=== PATIENT | male | born 1955 | race Caucasian/White ===

== ENCOUNTER 2021-06-19 11:18 | Inpatient (IN) ==
[~2021-06-19 11:18] MED LIST: Buffered Lidocaine 1% SYRIN 1 ml INTRADERM ONE; Dexamethasone IV 4 MG/ML VIAL 1 ml VIAL IV SLOW PU ONE; Famotidine IV 10 MG/ML 2 ml VIAL (20 mg) IV ONE; Lactated Ringers 1000 ml BAG 1,000 ML IV SCH
[2021-06-19] MEDS ORDERED: fentaNYL 100 mcg/2 ml 50 MCG/ML VIAL ONE (11:24)
[2021-06-19] MEDS ORDERED: Midazolam 2 mg/2 ml VIAL 1 mg/ml 2 ml VIAL (2 mg) ONE (11:24)
[2021-06-19] MEDS ORDERED: Lidocaine 2% PF 5 ML VIAL ONE (11:26)
[2021-06-19] MEDS ORDERED: ceFAZolin 2 GM PREMIX 2 GM/50 ML BAG ONE (11:45)
[2021-06-19] MEDS ORDERED: Dexamethasone IV 4 MG/ML VIAL 1 ml VIAL ONE (11:46)
[2021-06-19] MEDS ORDERED: Famotidine IV 10 MG/ML 2 ml VIAL (20 mg) ONE (11:47)
[2021-06-19] MEDS ORDERED: Naloxone 0.4 mg VIAL 0.4 mg/ml 1 ml VIAL IV PRN (12:52)
[2021-06-19] MEDS ORDERED: Morphine 4 MG/ML VIAL (1 ml) IV PRN (12:52)
[2021-06-19] MEDS ORDERED: fentaNYL 100 mcg/2 ml 50 MCG/ML VIAL IV PRN (12:52)
[2021-06-19] MEDS ORDERED: Prochlorperazine 5 mg/ml 2 ml VIAL (10 mg) IV PRN (12:52)
[2021-06-19] MEDS ORDERED: Rocuronium 50 mg VIAL 10 mg/ml 5 ml VIAL (50 mg) ONE (13:23)
[2021-06-19] MEDS ORDERED: fentaNYL 250 mcg/5 ml 50 MCG/ML 5 ml VIAL (250 MCG) ONE (14:07)
[2021-06-19] MEDS ORDERED: HYDROmorphone 0.5 MG/0.5 ML SYRINGE ONE ×2 (14:07)
[2021-06-19] MEDS ORDERED: Phenylephrine IV 10 MG/ML 1 ml VIAL ONE (14:18)
[2021-06-19] MEDS ORDERED: Ropivacaine 5 MG/ML 20 ML VIAL 0.5% (100 MG) ONE (14:24)
[2021-06-19] MEDS ORDERED: Ondansetron 4 mg VIAL 2 MG/ML 2 ml VIAL IV PRN (14:55)
[2021-06-19] MEDS ORDERED: diPHENhydraMINE IV 50 MG/ML 1 ml VIAL (BENADRYL) IV PRN (14:55)
[2021-06-19] MEDS ORDERED: diPHENhydraMINE 25 mg TAB PO PRN (14:55)
[2021-06-19] MEDS ORDERED: Ondansetron 4 mg VIAL 2 MG/ML 2 ml VIAL ONE (14:55)
[2021-06-19] MEDS ORDERED: Ondansetron ODT 4 mg TAB 4 MG TAB PO PRN (14:55)
[2021-06-19] MEDS ORDERED: Lactulose 30 ml UDC PO PRN (14:55)
[2021-06-19] MEDS ORDERED: Magnesium Hydroxide LIQ 30 ML UDC PO PRN (14:55)
[2021-06-19] MEDS ORDERED: Acetaminophen IV 1 GM/100ML 100 ML IV ONE (15:25)
[2021-06-19] MEDS ORDERED: EPHEDrine (Pressors) 50 MG/ML VIAL ONE (15:56)
[2021-06-19] MEDS ORDERED: hydrALAZINE 20 mg/ml 1 ML Vial IV IV SLOW PU PRN (16:55)
[2021-06-19] MEDS: Lactated Ringers 1000 ml BAG 1,000 ML IV SCH (18:53)
[2021-06-19] MEDS: Magnesium Hydroxide LIQ 30 ML UDC PO SCH (20:55)
[2021-06-19] MEDS: ceFAZolin 1 GM ADVAN 1 GM in NS 0.9% 50 ML 50 ML IVPB SCH (22:06)
[2021-06-20] MEDS: Lactated Ringers 1000 ml BAG 1,000 ML IV SCH (04:18)
[2021-06-20 05:03] LABS: Hematocrit 25 % (42-52); Hemoglobin 8.5 g/dL (14.0-18.0); Platelet Count 221 10^3/uL (150-450)
[2021-06-20 05:21] LABS: Calcium 8.4 mg/dL (8.6-10.3); Potassium 4.6 mmol/L (3.5-5.0); eGFR CKD-EPI 79.6 (>60)
[2021-06-20] MEDS: ceFAZolin 1 GM ADVAN 1 GM in NS 0.9% 50 ML 50 ML IVPB SCH (05:55)
[2021-06-20] MEDS ORDERED: Vitamin THERAPEUTIC TAB PO SCH (09:00)
[2021-06-20] MEDS: Magnesium Hydroxide LIQ 30 ML UDC PO SCH (09:54)
[2021-06-20 11:57] VITALS: BP 111/47
== END 2021-06-20 12:10 | disposition home or self-care (01) | DRG 470 ==
LOC: AA 11:18 → SSU 17:57
PROVIDERS: ADMIT Orthopaedic Surgery Adult Reconstructive Orthopaedic Surgery; ATTEND Orthopaedic Surgery Adult Reconstructive Orthopaedic Surgery

== ENCOUNTER 2024-03-20 06:27 | Observation (INO) ==
[~2024-03-20 06:27] MED LIST changes: -Buffered Lidocaine 1% SYRIN 1 ml INTRADERM ONE; -Dexamethasone IV 4 MG/ML VIAL 1 ml VIAL IV SLOW PU ONE; +Dexamethasone IV 4 MG/ML VIAL 1 ml VIAL ONE; -Famotidine IV 10 MG/ML 2 ml VIAL (20 mg) IV ONE; -Lactated Ringers 1000 ml BAG 1,000 ML IV SCH; +Lidocaine 2% PF 5 ML VIAL ONE; +Midazolam 2 mg/2 ml VIAL 1 mg/ml 2 ml VIAL (2 mg) ONE; +Naloxone 0.4 mg VIAL 0.4 mg/ml 1 ml VIAL IV PRN; +Ondansetron 4 mg VIAL 2 MG/ML 2 ml VIAL IV PRN; +Ondansetron 4 mg VIAL 2 MG/ML 2 ml VIAL ONE; +Propofol 0 MG/0 ML BTL ONE; +fentaNYL 250 mcg/5 ml 50 MCG/ML 5 ml VIAL (250 MCG) ONE
[2024-03-20] MEDS ORDERED: Rocuronium 50 mg VIAL 10 mg/ml 5 ml VIAL (50 mg) ONE (06:51)
[2024-03-20] MEDS ORDERED: Propofol 10 MG/ML 20 ML BTL ONE (06:51)
[2024-03-20] MEDS ORDERED: Midazolam 2 mg/2 ml VIAL 1 mg/ml 2 ml VIAL (2 mg) ONE (06:52)
[2024-03-20] MEDS ORDERED: Lidocaine 2% PF 5 ML VIAL ONE (06:52)
[2024-03-20] MEDS ORDERED: ROPIVACAINE 5 MG/ML 30 ML BTL (0.5%) ONE (06:58)
[2024-03-20 07:08] LABS: Rapid COVID-19 Molecular Undetected (Undetected)
[2024-03-20] MEDS ORDERED: Tranexamic Acid 1 GM/100ML BAG 2,000 MG/200 ML BAG IV ONE (08:12)
[2024-03-20] MEDS ORDERED: ceFAZolin 2 GM PREMIX 2 GM/50 ML BAG ONE (08:13)
[2024-03-20] MEDS ORDERED: HYDROmorphone 0.5 MG/0.5 ML SYRINGE ONE ×2 (09:40→10:30)
[2024-03-20] MEDS ORDERED: fentaNYL 250 mcg/5 ml 50 MCG/ML 5 ml VIAL (250 MCG) ONE (09:40)
[2024-03-20] MEDS ORDERED: Phenylephrine IV 10 MG/ML 1 ml VIAL ONE (09:51)
[2024-03-20] MEDS ORDERED: Lactulose 30 ml UDC PO PRN (10:09)
[2024-03-20] MEDS ORDERED: Calcium Carb (TUMS) 500 mg CHEW TAB PO PRN (10:09)
[2024-03-20] MEDS ORDERED: Magnesium Hydroxide LIQ 30 ML UDC PO PRN (10:09)
[2024-03-20] MEDS ORDERED: fentaNYL 100 mcg/2 ml 50 MCG/ML VIAL ONE (11:22)
[2024-03-20] MEDS: fentaNYL 100 mcg/2 ml 50 MCG/ML VIAL IV PRN (11:34)
[2024-03-20] MEDS ORDERED: Naloxone 0.4 mg VIAL 0.4 mg/ml 1 ml VIAL IV PRN (12:13)
[2024-03-20] MEDS ORDERED: HYDROmorphone 1 MG/1 ML SYRINGE ONE (12:16)
[2024-03-20] MEDS: HYDROmorphone 1 MG/1 ML SYRINGE IV PRN (12:17)
[2024-03-20] MEDS: Lactated Ringers 1000 ml BAG 1,000 ML IV SCH ×2 (13:20→14:22)
[2024-03-20] MEDS: Buffered Lidocaine 1% SYRIN 1 ml INTRADERM ONE (15:30)
[2024-03-20] MEDS: ceFAZolin 2 GM PREMIX 2 GM/50 ML BAG IV SCH (17:54)
[2024-03-20] MEDS: Magnesium Hydroxide LIQ 30 ML UDC PO SCH (23:04)
[2024-03-21] MEDS: Ondansetron ODT 4 mg TAB 4 MG TAB PO PRN (00:14)
[2024-03-21 07:31] LABS: Hematocrit 27.9 % (38-53); Hemoglobin 9.5 g/dL (13.2-16.3); Mean Platelet Volume 6.9 fL (7.5-11.2); Platelet Count 215 10^3/uL (150-450)
[2024-03-21] MEDS: Ondansetron 4 mg VIAL 2 MG/ML 2 ml VIAL IV PRN (07:31)
[2024-03-21 07:47] LABS: Calcium 8.8 mg/dL (8.6-10.3); Creatinine, Serum 1.19 mg/dL (0.67-1.17); Potassium 4.8 mmol/L (3.5-5.0); eGFR CKD-EPI 65.7 (>60)
[2024-03-21] MEDS: Prochlorperazine 5 mg/ml 2 ml VIAL (10 mg) IV PRN (08:37)
[2024-03-21] MEDS: Scopolamine 1 mg/72hr PATCH TRANSDERM SCH (08:41)
[2024-03-21] MEDS: Prochlorperazine 5 mg/ml 2 ml VIAL (10 mg) ONE (09:16)
[2024-03-21] MEDS: NS 0.9% 250 ml 250 ML IV ONE (09:56)
[2024-03-21] MEDS: Vitamin THERAPEUTIC TAB PO SCH (10:14)
[2024-03-21] MEDS: Aspirin EC 81 mg TAB.EC (enteric coated) PO SCH (10:52)
[2024-03-21] MEDS: Morphine 2 MG/ML SYRINGE IV PRN (11:42)
[2024-03-21] MEDS: Pantoprazole VIAL 40 MG VIAL IV ONE (12:50)
[2024-03-21] MEDS: NS 0.9% 500 ml BAG 500 ML IV ONE (12:51)
[2024-03-22 05:51] LABS: ABS Eosinophils 0.1 10^3/uL (0.0-0.5); ABS Lymphocytes 1.6 10^3/uL (1.0-4.8); ABS Monocytes 0.8 10^3/uL (0.0-1.1); ABS Neutrophils 5.2 10^3/uL (1.5-7.6); Hematocrit 24.1 % (38-53); Hemoglobin 8.2 g/dL (13.2-16.3); Lymphocyte % 21.3 %; Mean Corpuscular Hgb Conc 34.1 g/dL (31-36); Mean Corpuscular Volume 99.5 fL (80-97); Mean Platelet Volume 6.8 fL (7.5-11.2); Platelet Count 182 10^3/uL (150-450); Red Blood Count 2.42 10^6/uL (4.06-5.63); Red Cell Distribution Width 13.2 % (12-17); White Blood Count 7.7 10^3/uL (3.6-10.2)
[2024-03-22 06:07] LABS: Calcium 8.2 mg/dL (8.6-10.3); Creatinine, Serum 1.07 mg/dL (0.67-1.17); Potassium 4.4 mmol/L (3.5-5.0); eGFR CKD-EPI 74.7 (>60)
[2024-03-22 09:12] VITALS: BP 130/62
== END 2024-03-22 12:20 | disposition home or self-care (01) ==
LOC: OR 06:27 → SSU 06:27
PROVIDERS: ADMIT Orthopaedic Surgery Adult Reconstructive Orthopaedic Surgery; ATTEND Orthopaedic Surgery Adult Reconstructive Orthopaedic Surgery